=== PATIENT | female | born 1955 | race Hispanic/Latino ===

== ENCOUNTER 2020-11-28 13:44 | Outpatient (CLI) | payer MEDICARE | END 2020-11-28 13:45 | disposition home or self-care (01) | LOC: CSHMAMMO 13:44 | PROVIDERS: ATTEND Family Medicine | DX: Z12.31 Encounter for screening mammogram for malignant neoplasm of breast (principal) | CPT/HCPCS: 77063; 77067 ==

== ENCOUNTER 2021-10-22 10:56 | Outpatient (CLI) | payer MEDICARE ==
[2021-10-23 00:07] LABS: SARS-CoV-2 PCR by NAA Not Detected (NotDetected)
== END 2021-10-22 10:57 | disposition home or self-care (01) ==
LOC: CSHLAB 10:56
PROVIDERS: ATTEND Internal Medicine Gastroenterology
DX: Z20.822 Contact with and (suspected) exposure to COVID-19 (principal); Z12.11 Encounter for screening for malignant neoplasm of colon
CPT/HCPCS: U0003; U0005

== ENCOUNTER 2022-10-05 17:04 | Observation (INO) | payer MEDICARE ==
[2022-10-05 17:24] VITALS: BMI 33.5
[2022-10-05] MEDS ORDERED: FLU VACC QS2022-23(65YR UP)/PF 240 MCG/0.7 ML SYRINGE IM ONE (18:00)
[2022-10-05] MEDS ORDERED: Ondansetron ODT 4 MG TAB PO SCH (18:30)
[2022-10-05] MEDS ORDERED: Ondansetron ODT 4 MG TAB PO PRN (20:11)
[2022-10-05] MEDS ORDERED: Milk Of Magnesia 30 ML UDCUP PO PRN (20:11)
[2022-10-05 20:53] LABS: Troponin I Less than 0.010 ng/mL (< 0.028)
[2022-10-05 20:55] LABS: Magnesium 1.8 mg/dL (1.6-2.6)
[2022-10-05] MEDS ORDERED: Rosuvastatin 20 MG TAB PO SCH (21:00)
[2022-10-06 03:51] LABS: #Monocytes 0.6 10x3/uL (0.0-1.1); #Neutrophils 5.6 10x3/uL (1.5-8.4); %Basophils 0.3 % (0.0-2.0); %Eosinophils 0.5 % (0.0-6.0); %Lymphocytes 19.9 % (18.0-47.0); %Monocytes 7.9 % (0.0-10.0); %Neutrophils 71.1 % (40.0-75.0); Hemoglobin 13.5 g/dL (12.0-15.5); Mean Corpuscular HGB CONC 33.7 g/dL (32.0-36.0); Mean Corpuscular Hemoglobin 30.1 pg (27.0-33.0); Mean Corpuscular Volume 89.3 fl (81.6-98.3); Mean Platelet Volume 10.3 fl (7.4-10.4); Platelet Count 210 10x3/uL (150-450); RBC Distribution Width 13.2 % (11.5-14.5); Red Blood Cell (RBC) Count 4.49 10x6/uL (3.90-5.03); White Blood Cell (WBC) Count 7.8 10x3/uL (3.5-10.5)
[2022-10-06 04:05] LABS: Anion Gap 15 mmol/L (10-20); BUN (Urea Nitrogen) 15 mg/dL (9.8-20.1); Calc. Creatinine Clearance 76 mL/min (70-130); Carbon Dioxide 20 mmol/L (23-31); Cardiac Risk 3.3 (Less than 4.5); Chloride 112 mmol/L (98-107); Cholesterol 165 mg/dl (< 200 Desired); Estimated GFR 66; Glucose 93 mg/dL (80-115); HDL Cholesterol 50 mg/dL (>60 Neg Risk); LDL Cholesterol, Calculated 92 mg/dL; Sodium 143 mmol/L (136-145); Triglycerides 113 mg/dL (Less than 150)
[2022-10-06] MEDS ORDERED: Losartan 25 MG TAB PO SCH (09:00)
[2022-10-06] MEDS ORDERED: Aspirin Chewable 81 MG TAB PO SCH (09:00)
[2022-10-06 12:07] VITALS: BP 108/57; TEMP 98.1
== END 2022-10-06 14:27 | disposition home or self-care (01) ==
LOC: CSHTELE 17:04 → INTOOBSV 17:04
PROVIDERS: ADMIT Internal Medicine; ATTEND Internal Medicine
DX: R42 Dizziness and giddiness (principal); I25.10 Atherosclerotic heart disease of native coronary artery without angina pectoris; I10 Essential (primary) hypertension; E78.5 Hyperlipidemia, unspecified; K21.9 Gastro-esophageal reflux disease without esophagitis; Z20.822 Contact with and (suspected) exposure to COVID-19; Z79.82 Long term (current) use of aspirin; Z79.899 Other long term (current) drug therapy; Z88.0 Allergy status to penicillin; Z88.5 Allergy status to narcotic agent; Z88.8 Allergy status to other drugs, medicaments and biological substances
CPT/HCPCS: 70551; 80048; 80061; 83735; 84443; 84484; 85025; 93880; 96372; G0378 ×2; U0003; U0005; 36415; J1650; Q0162